=== PATIENT | female | born 1980 | race Caucasian/White ===

== ENCOUNTER 2021-06-05 09:46 | Emergency (ER) | payer OTHER ==
[2021-06-05 10:19] LABS: BASOPHIL 1.1 % (0-2); EOSINOPHIL 1.5 % (0-5); HCT 41.2 % (37.0-47.0); HGB 13.9 g/dl (12.5-16.0); LYMPHOCYTE 23.2 % (15-48); MCH 30.1 pg (25.0-31.0); MCHC 33.7 g/dL (32.0-36.0); MCV 89.2 fL (78.0-100.0); MONOCYTE 8.3 % (0-12); MPV 9.2 fL (6.0-9.5); NEUTROPHIL 65.7 % (41-80); NRBC 0; PLT 224 K/uL (150-400); RBC 4.62 M/uL (4.20-5.40); RDW 12.3 % (11.5-14.0); WBC 4.7 K/uL (4.0-10.5)
[2021-06-05 10:24] LABS: INR 0.94 (0.9-1.2); PTT 23.9 SECONDS (24.4-34.7)
[2021-06-05 10:25] LABS: D-DIMER 0.41 ug/mLFEU (0.00-0.41)
[2021-06-05 10:32] LABS: ALBUMIN 4.3 g/dL (3.4-5.0); BILIRUBIN - TOTAL 0.4 mg/dL (0.2-1.0); BUN/CREAT RATIO (CALC) 9.6 RATIO; CREATININE 0.73 mg/dL (0.51-0.95); FT4 (FREE T4) 1.7 ng/dL (0.76-1.46); MAGNESIUM 1.9 mg/dL (1.8-2.4); POTASSIUM 3.5 mmol/L (3.5-5.1); TOTAL PROTEIN 8.3 g/dL (6.4-8.2)
[2021-06-05] MEDS ORDERED: XANAX0.5 MG PO (11:50)
[2021-06-05] MEDS ORDERED: XANAX0.5 M1 PO (12:06)
== END 2021-06-05 15:44 | disposition home or self-care (01) ==
LOC: FER 09:46
PROVIDERS: Emergency Medicine
DX: R06.4 Hyperventilation (principal); E87.3 Alkalosis
CPT/HCPCS: 36415; 36600; 70450; 71045; 80053; 82803; 83735; 83880; 84145; 84439; 84484; 85025; 85379; 85610; 85730; 93005